=== PATIENT | male | born 1970 | race African-American/Black ===

== ENCOUNTER 2016-09-04 02:10 | Emergency (ER) | payer BC ==
--- NOTE | ~2016-09-04 | CR72 ---
[facility] A Service of [facility] RADIOLOGY TEXT RESULTS PATIENT: RENETTA HDZ LOCATION: SED : 66 UNIT #: [id number] AGE: [address]: Jose Maria Velasco MD SEX: M ORDER DR: [id number] [place] [id number] E MR#: [id number] Acc #: [id number] NAME: RENETTA HDZ : 1970 SEX: M STUDY DATE/TIME: 09/04/2016 2:55 UNIT: SED ROOM: STUDY DESCRIPTION: CR Chest Single View Portable Attending Physician: Jose Maria Velasco M.D. Ordering Physician: Jose Maria Velasco M.D. Primary Care Physician: Primary Care Physician No MEDICAL IMAGING REPORT This report is preliminary unless electronic signature is present. EXAM Portable chest INDICATION Chest pain today. PROCEDURE Frontal view chest. COMPARISON None. FINDINGS Upper limits of normal heart size. No dense consolidation, effusion or pneumothorax. IMPRESSION No active process. Dictated by... Cornelius Allen M.D. THIS IS AN ELECTRONICALLY VERIFIED REPORT Cornelius Allen M.D. at 09/04/2016 10:24 PM EED/jarett TD: 09/04/2016 04:45 JOB #: [id number] MEDICAL IMAGING REPORT [facility] A Service of [facility] RADIOLOGY TEXT RESULTS PATIENT: RENETTA HDZ LOCATION: SED : 66 UNIT #: [id number] AGE: [address]: Jose Maria Velasco MD SEX: M ORDER DR: Page 1 of 1
--- NOTE | ~2016-09-04 | EKG ---
PATIENT: RENETTA HDZ UNIT #: [id number] Ventricular Rate: 65 BPM Atrial Rate: 65 BPM P-R Interval: 156 ms QRS Duration: 82 ms Q-T Interval: 392 ms QTC Calculation(Bezet): 407 ms P [place]: 43 degrees Calculated R [place]: 8 degrees Calculated T [place]: 1 degrees Diagnosis Line: Normal sinus rhythm with sinus arrhythmia Diagnosis Line: Normal ECG Diagnosis Line: No previous ECGs available Diagnosis Line: Confirmed by MONO WORLEY MD ([id number]) on 09/11/2016 Diagnosis Line: 7:58:39 PM INTERPRETING MD: BRUNILDA PARRA
[~2016-09-04 02:10] MED LIST: NO MEDICATIONS
[2016-09-04 02:27] LABS: POC - TROPONIN <0.05 ng/mL (<=0.05)
[2016-09-04 02:31] LABS: BASOPHIL# 0.1 X10e3 (0-0.3); BASOPHIL% 1.1 % (0-2.5); EOSINOPHIL# 0.2 X10e3 (0-0.7); HEMATOCRIT 41.5 % (38.0-50.0); HEMOGLOBIN 13.4 gm/dL (13.0-16.0); LYMPHOCYTE# 3.4 X10e3 (1.0-3.5); LYMPHOCYTE% 48.3 % (17.0-45.0); MEAN CELL VOLUME 77.7 FL (83-96); MEAN CORPUSCULAR HEMOGLOBIN 25.1 PG (28-34); MEAN CORPUSCULAR HGB CONC 32.3 g/dL (30-36); MEAN PLATELET VOLUME 8.4 FL (6.5-11.5); MONOCYTE% 13.6 % (3.0-12.0); NEUTROPHIL# 2.4 X10e3 (1.5-7.1); PLATELET COUNT 205 X10e3 (140-420); RED BLOOD COUNT 5.33 X10e (3.90-5.60); WHITE BLOOD COUNT 7.1 X10e3 (4.0-10.5)
[2016-09-04 02:34] LABS: DIFF IND NO
[2016-09-04 02:35] LABS: INR 1.1; PROTHROMBIN TIME (PATIENT) 12.7 SECONDS (9.5-12.4)
[2016-09-04 02:43] LABS: ALBUMIN SERUM 4.2 g/dL (3.5-5.0); BILIRUBIN, DIRECT 0.1 mg/dL (0.0-0.2); BILIRUBIN,INDIRECT 0.3 mg/dL (0.0-0.9); BILIRUBIN,TOTAL 0.4 mg/dL (0.2-2.0); BUN/CREATININE RATIO 22.72; CALCIUM SERUM 8.6 mg/dL (8.4-10.2); CREATININE SERUM 1.1 mg/dL (0.6-1.4); GLOM FILT RATE Estimated 92.2 mL/min (>60); MAGNESIUM 2.1 mg/dL (1.6-3.0); POTASSIUM 3.4 mmol/L (3.5-5.1); PROTEIN TOTAL SERUM 7.5 g/dL (6.0-8.3)
[2016-09-04 03:47] LABS: POC - CKMB <1.0 ng/mL (0.0-7.9); POC - TROPONIN <0.05 ng/mL (<=0.05)
== END 2016-09-04 04:14 | disposition home or self-care (01) ==
LOC: SED 02:10
PROVIDERS: Emergency Medicine
DX: M94.0 Chondrocostal junction syndrome [Tietze] (principal); I10 Essential (primary) hypertension; Z87.891 Personal history of nicotine dependence
CPT/HCPCS: 36415; 71010; 80048; 80076; 82553; 83735; 83874; 83880; 84484; 85025; 85379; 85610; 85730; 93005; 96361; 96374; 96375; 99284; J2270; J2405